=== PATIENT | female | born 1960 | race Caucasian/White ===

== ENCOUNTER 2023-08-29 01:49 | Emergency (ER) | payer MEDICARE, MEDICAID ==
[~2023-08-29] VITALS: Ht 177.8 cm; Wt 72.0 kg
[~2023-08-29 01:49] MED LIST: ASPI-1264 PO; CYCL-394 PO; HYDR-3965 PO; HYDR-4383 PO; LOP25T PO; THY60T PO; TRAZ50TA54 PO
[2023-08-29 01:51] VITALS: TEMP 98.4
[2023-08-29 02:32] LABS: CLARITY,URINE SLIGHTLY CLOUDY (Clear); COLOR,URINE ORANGE (Yellow)
[2023-08-29 02:35] LABS: UA COLLECTION TYPE CLN CATCH MIDSTREAM
[2023-08-29 02:48] LABS: BACTERIA,URINE 2+ /HPF (Neg); RBC,URINE 0-2 /HPF (0-2); SQUAMOUS EPITHELIAL CELL,UR FEW /LPF (FEW)
[2023-08-29 06:19] LABS: BASOPHILS % (AUTO) 0.4 % (0-1); EOSINOPHILS # (AUTO) 0.2 X10'3 (0-0.9); EOSINOPHILS % (AUTO) 3.5 % (0-6); HEMATOCRIT 37.3 % (35.0-45.0); HEMOGLOBIN 12.5 g/dl (12.0-16.0); LYMPHOCYTES # (AUTO) 1.7 X10'3 (1.1-4.8); MEAN CORPUSCULAR HGB CONC 33.5 g/dL (33.0-36.5); MEAN CORPUSCULAR VOLUME 86.5 FL (78-98); MEAN PLATELET VOLUME 9.4 FL (7.4-10.4); MONOCYTES # (AUTO) 0.5 X10'3 (0-0.9); NEUTROPHILS # (AUTO) 2.1 X10'3 (1.8-7.7); NEUTROPHILS % (AUTO) 47.1 % (42-75); PLATELET COUNT 165 X10'3 (140-440); RED BLOOD COUNT 4.32 X10'6 (4.20-5.60); RED CELL DISTRIBUTION WIDTH 13.1 % (11.5-14.5); WHITE BLOOD COUNT 4.5 X10'3 (4.5-11.0)
[2023-08-29 06:49] LABS: ALBUMIN 3.1 G/DL (3.4-5.0); ANION GAP 8 (8-16); BLOOD UREA NITROGEN 4 MG/DL (7-18); BUN/CREATININE RATIO 7.5 (10.0-20.0); CHLORIDE 101 MMOL/L (99-107); CREATININE 0.53 MG/DL (0.40-0.90); GLUCOSE 97 MG/DL (70-104); LIPASE 30 U/L (16-77); MAGNESIUM 1.7 MG/DL (1.5-2.4); POTASSIUM 3.3 MMOL/L (3.5-5.1); PRO BRAIN NATRIURETIC PEPTIDE 967 PG/ML (0-125); SODIUM 135 MMOL/L (135-145); TOTAL CARBON DIOXIDE 25.9 MMOL/L (24-32); eCRCL 117 ML/MIN; eGFR > 90 ML/MIN
[2023-08-29] MEDS ORDERED: CEPH250T PO (07:09)
[2023-08-29] MEDS ORDERED: ONDA4TAB12 PO (07:09)
[2023-08-29] MEDS: normal saline 1000ML IV soln IVB ONE (07:18)
[2023-08-29] MEDS: CefTRIAXone/D5W-Rocephin 1gm 50 ML IV ONE (07:18)
[2023-08-29 08:45] VITALS: BP 141/84; PULSE 83; RESP 16; O2SAT 98
[2023-09-01] MEDS ORDERED: CEFU250T95 PO (12:43)
== END 2023-08-29 08:52 | disposition home or self-care (01) ==
LOC: ER 01:49
DX: N30.01 Acute cystitis with hematuria (principal); B34.9 Viral infection, unspecified; E03.9 Hypothyroidism, unspecified; G89.29 Other chronic pain; M54.9 Dorsalgia, unspecified; F41.9 Anxiety disorder, unspecified; Z79.899 Other long term (current) drug therapy
CPT/HCPCS: 36415; 71045; 80048; 81001; 83690; 83735; 83880; 84484; 85025; 87077; 87088; 87186; 87502; 87503; 87811; 93005; 96365; 99285; J0696; J7030